=== PATIENT | male | born 1960 | race Caucasian/White ===

== ENCOUNTER 2020-12-05 19:00 | Observation (INO) | payer BC ==
[2020-12-05] MEDS ORDERED: Sodium Chloride 0.9% 1,000 ML IV ONE (19:08)
[2020-12-05] MEDS ORDERED: Morphine 2 MG/ML SYRINGE IVPUSH ONE (19:08)
[2020-12-05] MEDS ORDERED: Tranexamic Acid 1,000 MG in Sodium Chloride 0.9% 100 ML IV SCH (19:15)
[2020-12-05] MEDS ORDERED: Iopamidol 612 MG/ML 50 ML SDV IVPUSH ONE (19:31)
[2020-12-05] MEDS ORDERED: Iopamidol 612 MG/ML 100 ML Bottle IVPUSH ONE (19:31)
[2020-12-05] MEDS: Sodium Chloride 0.9% 10 ML Syringe FLUSH PRN ×2 (19:37→19:41)
--- NOTE | 2020-12-05 19:54 | CT ---
CT chest Technique: Multiple axial sections were obtained through the chest. Intravenous contrast was utilized. Reconstructed coronal and sagittal images were obtained. Comparison: No prior chest imaging is available. Findings: Thoracic aorta shows no aneurysm. Mediastinum and hilar regions show no adenopathy. No axillary adenopathy is seen. No pericardial thickening is seen. Lung window settings were reviewed which show slight dependent atelectasis posteriorly. Lungs show no acute parenchymal process. No pleural effusions or pneumothorax are seen. Bone window settings were reviewed which show acute rib fractures within the posterolateral right 9th rib which is mildly displaced. Additional fracture is seen showing minimal displacement within the posterolateral 10th rib and nondisplaced fracture within the posterior 11th rib. There is also a slightly angulated fracture within the posterior 12th rib. Deformity is noted within both clavicles compatible with old healed fractures. Several old rib fractures are also noted on the right side. Impression: 1. Acute rib fractures within the right 9th, 10th, 11th and 12th ribs. 2. Several old rib fractures which appear healed are also noted on the right side. Old deformity of both clavicles are seen compatible with old injury. 3. Minimal dependent atelectasis. 4. No other acute abnormality is appreciated on CT study of the chest. Diagnostic code #3 CT abdomen and pelvis Technique: Multiple axial sections were obtained from above the dome of the diaphragm inferiorly through the pubic symphysis. Intravenous contrast was utilized. No oral contrast has been given. Delayed images were also obtained through the abdomen and pelvis. Reconstructed coronal and sagittal images were obtained. Comparison: No prior abdominal imaging is available. Findings: Subcutaneous hematoma is seen within the right flank. There is also mild thickening of the adjacent right abdominal musculature within the posterolateral abdomen above the iliac crest compatible with muscular hematoma. Liver shows fatty infiltration without focal abnormality. Gallbladder contains no calcified gallstones. Spleen appears within normal limits. Adrenal glands show no nodule. Pancreas is within normal limits. Kidneys show symmetric contrast enhancement. No hydronephrosis or other abnormality is seen. Delayed images show contrast within the collecting systems of both kidneys as well as within the ureters and bladder. Abdominal aorta shows no aneurysm. No retroperitoneal adenopathy is seen. No mesenteric abnormalities are seen. No pelvic mass or adenopathy is seen. Appendix is seen which is normal in size. Bone window settings were reviewed which show a compression deformity within L4. I believe this is most likely old. Scattered degenerative change is seen within the lumbar spine. Nothing acute is appreciated within the visualized osseous structures within the abdomen and pelvis. Impression: 1. Subcutaneous hematoma within the right flank as well as adjacent muscular hematoma within the adjacent abdominal musculature. 2. Compression deformity within L4 which is most likely old. 3. Other findings which are believed to be incidental. Diagnostic code #3
--- NOTE | 2020-12-05 20:34 | EDM.PDOC ---
ED HPI GENERAL MEDICAL PROBLEM - General Chief Complaint: Trauma Stated Complaint: [facility] Time Seen by Provider: 12/05/20 19:06 Source of Information: Reports: Patient, EMS History Limitations: Reports: No Limitations - History of Present Illness INITIAL COMMENTS - FREE TEXT/NARRATIVE: Patient is a 60-year-old male who had a trauma between himself and a horse in an alley wall. Horse was running by and knocked the patient into the wall with right-sided torso injury and left wrist pain. Patient was not kicked or stepped on by the horse. He was not thrown by the horse. He denies any trouble breathing and is having right flank pain and right rib pain. He denies drinking any alcohol or using any drugs. He states he has no medical problems and is not on any medications and he is allergic to aspirin which causes his throat to swell. Patient has a slight lisp which is not new. There was no head or neck trauma. Onset: Today, Sudden Duration: Constant Location: Reports: Chest, Abdomen, Upper Extremity, Left Quality: Reports: Ache, Dull Severity: Moderate Worsens with: Reports: Movement Context: Reports: Trauma Associated Symptoms: Reports: No Other Symptoms. Denies: Headaches, Nausea/Vomiting, Shortness of Breath Left Shoulder Pain Score (Numeric/FACES): 5 - Related Data Allergies Allergy/AdvReac Type Severity Reaction Status Date / Time aspirin Allergy Respiratory Verified 12/05/20 19:14 Distress Home Meds: Home Meds . [No Known Home Meds] 12/05/20 [History] Past Medical History - Past Health History Medical/Surgical History: Denies Medical/Surgical History Social & Family History - Tobacco Use Tobacco Use Status *Q: Never Tobacco User Second Hand Smoke Exposure: No - Caffeine Use Caffeine Use: Reports: Soda - Alcohol Use Date of Last Drink: 12/05/20 Time of Last Drink: 17:00 - Recreational Drug Use Recreational Drug Use: No Review of Systems - Review of Systems Review Of Systems: Comprehensive ROS is negative, except as noted in HPI. Constitutional: Reports: No Symptoms Mouth/Throat: Reports: No Symptoms Respiratory: Reports: Pleuritic Chest Pain. Denies: Shortness of Breath Cardiovascular: Reports: No Symptoms GI/Abdominal: Reports: Abdominal Pain. Denies: Nausea, Vomiting Musculoskeletal: Reports: Arm Pain Skin: Reports: Bruising, Erythema (Right-sided abrasions contusions on his flank and lateral chest wall.) Neurological: Reports: No Symptoms. Denies: Dizziness, Headache, Numbness Psychiatric: Reports: No Symptoms ED EXAM, GENERAL - Physical Exam Exam: See Below Exam Limited By: No Limitations General Appearance: Alert, Mild Distress Throat/Mouth: Normal Inspection Head: Atraumatic, Normocephalic Neck: Normal Inspection, Supple, Non-Tender, Full Range of Motion Respiratory/Chest: No Respiratory Distress, Lungs Clear, Normal Breath Sounds. No: Decreased Breath Sounds, Crackles, Rales, Retractions Cardiovascular: Regular Rate, Rhythm, No Edema, No JVD GI/Abdominal: Tender. No: Distended, Guarding, Rigid, Rebound, Abnormal Bowel Sounds Back Exam: No: CVA Tenderness (L), CVA Tenderness (R) Extremities: Arm Pain (Left wrist pain.) Neurological: Alert, Oriented, Normal Cognition Psychiatric: Normal Affect Skin Exam: Warm, Dry Lymphatic: No Adenopathy Course - Vital Signs Text/Narrative:: CT of his chest and abdomen shown to have rib fractures on the right side number 11/28/2010 and 12. He does have injury to his right flank with a hematoma in the abdominal low musculature patient does have a compression deformity of L4 which appears to be old. There is no other injuries reported by radiologist. Is left wrist shows him to have a distal ulnar fracture. Patient is comfortable with 2 mg of morphine at this point. I have discussed his findings and vital signs with Dr. Zhang who is a surgeon environmental marketing representative who has agreed to admit him for pain control and observation. Patient's vital signs remained stable throughout and he has never been tachycardic and blood pressure of 129/89. He has received a liter of fluid and his lab work is unremarkable. Last Recorded V/S: Last Vital Signs Temp 98.2 F 12/05/20 22:00 Pulse 77 12/05/20 22:03 Resp 20 12/05/20 22:00 BP 135/87 12/05/20 22:00 Pulse Ox 96 12/05/20 22:03 - Orders/Labs/Meds Orders: Active Orders 24 hr Category Date Time Status Sodium Chloride 0.9% [Saline Flush] Med 12/05/20 19:08 Active 10 ml FLUSH ASDIRECTED PRN Peripheral IV Insertion Adult [OM.PC] Routine Oth 12/05/20 19:07 Ordered Medication Orders Hydromorphone HCl (Hydromorphone 0.5 Mg/0.5 Ml Syringe) 0.5 mg IVPUSH Q1H PRN PRN Reason: Pain Sodium Chloride (Normal Saline) 1,000 mls @ 125 mls/hr IV ASDIRECTED MORIAH Last Admin: 12/06/20 00:03 Dose: 125 mls/hr Documented by: JES Oxycodone HCl (Oxycodone 5 Mg Tab) 5 mg PO Q4H PRN PRN Reason: Pain Oxycodone/Acetaminophen (Acetaminophen/Oxycodone 325-5 Mg Tab) 1 tab PO Q4H PRN PRN Reason: Pain (moderate 4-6) Last Admin: 12/06/20 00:03 Dose: 1 tab Documented by: JES Sodium Chloride (Sodium Chloride 0.9% 10 Ml Syringe) 10 ml FLUSH ASDIRECTED PRN PRN Reason: Keep Vein Open Last Admin: 12/05/20 19:41 Dose: 10 ml Documented by: Admin: 12/05/20 19:37 Dose: 10 ml Documented by: CARMITA Labs: Laboratory Tests 12/05/20 12/05/20 12/05/20 Range/Units 19:04 19:04 19:04 WBC 9.62 H (4.23-9.07) K/mm3 RBC 4.65 (4.63-6.08) M/mm3 Hgb 13.6 L (13.7-17.5) gm/dl Hct 41.9 (40.1-51.0) % MCV 90.1 (79.0-92.2) fl MCH 29.2 (25.7-32.2) pg MCHC 32.5 (32.2-35.5) g/dl RDW Std Deviation 43.5 (35.1-43.9) fL Plt Count 263 (163-337) K/mm3 MPV 9.5 (9.4-12.3) fl Neutrophils % (Manual) 73 H (40-60) % Band Neutrophils % 0 (0-10) % Lymphocytes % (Manual) 19 L (20-40) % Atypical Lymphs % 0 % Monocytes % (Manual) 6 (2-10) % Eosinophils % (Manual) 2 (0.8-7.0) % Basophils % (Manual) 0 L (0.2-1.2) Platelet Estimate Adequate RBC Morph Comment Normal Sodium 141 (136-145) mEq/L Potassium 4.1 (3.5-5.1) mEq/L Chloride 107 (98-107) mEq/L Carbon Dioxide 29 (21-32) mEq/L Anion Gap 9.1 (5-15) BUN 18 (7-18) mg/dL Creatinine 1.2 (0.7-1.3) mg/dL Est Cr Clr Drug Dosing 71.85 mL/min Estimated GFR (MDRD) > 60 (>60) mL/min BUN/Creatinine Ratio 15.0 (14-18) Glucose 135 H (70-99) mg/dL Calcium 8.5 (8.5-10.1) mg/dL Total Bilirubin 0.6 (0.2-1.0) mg/dL AST 35 (15-37) U/L ALT 45 (16-63) U/L Alkaline Phosphatase 86 (46-116) U/L Total Protein 7.4 (6.4-8.2) g/dl Albumin 3.8 (3.4-5.0) g/dl Globulin 3.6 gm/dL Albumin/Globulin Ratio 1.1 (1-2) Lipase 85 (73-393) U/L SARS-CoV-2 RNA (FREDI) (NEGATIVE) Blood Type A POSITIVE Gel Antibody Screen Negative 12/05/20 Range/Units 19:49 WBC (4.23-9.07) K/mm3 RBC (4.63-6.08) M/mm3 Hgb (13.7-17.5) gm/dl Hct (40.1-51.0) % MCV (79.0-92.2) fl MCH (25.7-32.2) pg MCHC (32.2-35.5) g/dl RDW Std Deviation (35.1-43.9) fL Plt Count (163-337) K/mm3 MPV (9.4-12.3) fl Neutrophils % (Manual) (40-60) % Band Neutrophils % (0-10) % Lymphocytes % (Manual) (20-40) % Atypical Lymphs % % Monocytes % (Manual) (2-10) % Eosinophils % (Manual) (0.8-7.0) % Basophils % (Manual) (0.2-1.2) Platelet Estimate RBC Morph Comment Sodium (136-145) mEq/L Potassium (3.5-5.1) mEq/L Chloride (98-107) mEq/L Carbon Dioxide (21-32) mEq/L Anion Gap (5-15) BUN (7-18) mg/dL Creatinine (0.7-1.3) mg/dL Est Cr Clr Drug Dosing mL/min Estimated GFR (MDRD) (>60) mL/min BUN/Creatinine Ratio (14-18) Glucose (70-99) mg/dL Calcium (8.5-10.1) mg/dL Total Bilirubin (0.2-1.0) mg/dL AST (15-37) U/L ALT (16-63) U/L Alkaline Phosphatase (46-116) U/L Total Protein (6.4-8.2) g/dl Albumin (3.4-5.0) g/dl Globulin gm/dL Albumin/Globulin Ratio (1-2) Lipase (73-393) U/L SARS-CoV-2 RNA (FREDI) Negative (NEGATIVE) Blood Type Gel Antibody Screen Meds: Medications Generic Name Dose Route Start Last Admin Trade Name Freq PRN Reason Stop Dose Admin Hydromorphone HCl 0.5 mg 12/05/20 23:42 Hydromorphone 0.5 Mg/0.5 Ml Syringe IVPUSH Q1H PRN Pain Sodium Chloride 1,000 mls @ 125 mls/hr 12/05/20 23:45 12/06/20 00:03 Normal Saline IV 125 mls/hr ASDIRECTED MORIAH Administration Oxycodone HCl 5 mg 12/05/20 23:41 Oxycodone 5 Mg Tab PO Q4H PRN Pain Oxycodone/Acetaminophen 1 tab 12/05/20 23:35 12/06/20 00:03 Acetaminophen/Oxycodone 325-5 Mg Tab PO 1 tab Q4H PRN Administration Pain (moderate 4-6) Sodium Chloride 10 ml 12/05/20 19:08 12/05/20 19:41 Sodium Chloride 0.9% 10 Ml Syringe FLUSH 10 ml ASDIRECTED PRN Administration Keep Vein Open Discontinued Medications Generic Name Dose Route Start Last Admin Trade Name Freq PRN Reason Stop Dose Admin Sodium Chloride 1,000 mls @ 1,000 mls/hr 12/05/20 19:08 12/05/20 19:41 Normal Saline IV 12/05/20 20:07 1,000 mls/hr ONETIME ONE Administration Tranexamic Acid 1,000 mg/ 110 mls @ 400 mls/hr 12/05/20 19:15 Sodium Chloride IV ONETIME MORIAH Iopamidol 50 ml 12/05/20 19:31 12/05/20 19:37 Iopamidol 612 Mg/Ml 50 Ml Sdv IVPUSH 12/05/20 19:32 50 ml ONETIME ONE Administration Iopamidol 100 ml 12/05/20 19:31 12/05/20 19:37 Iopamidol 612 Mg/Ml 100 Ml Bottle IVPUSH 12/05/20 19:32 100 ml ONETIME ONE Administration Morphine Sulfate 2 mg 12/05/20 19:08 12/05/20 19:41 Morphine 2 Mg/Ml Syringe IVPUSH 12/05/20 19:09 2 mg ONETIME ONE Administration Departure - Departure Time of Disposition: 20:37 Disposition: Admitted As Inpatient 66 Condition: Good Clinical Impression: Fracture of multiple ribs, Abdominal wall hematoma, Wrist fracture, left - Discharge Information Sepsis Event Note (ED) - Focused Exam Vital Signs: Vital Signs Temp Pulse Resp BP Pulse Ox 12/05/20 19:12 97.3 F 75 20 129/89 92 L - My Orders Last 24 Hours: My Active Orders 12/05/20 19:07 Peripheral IV Insertion Adult [OM.PC] Routine 12/05/20 19:08 Sodium Chloride 0.9% [Saline Flush] 10 ml FLUSH ASDIRECTED PRN - Assessment/Plan Last 24 Hours: My Active Orders 12/05/20 19:07 Peripheral IV Insertion Adult [OM.PC] Routine 12/05/20 19:08 Sodium Chloride 0.9% [Saline Flush] 10 ml FLUSH ASDIRECTED PRN
[2020-12-05] MEDS ORDERED: oxyCODONE 5 MG Tab PO PRN (23:41)
[2020-12-05] MEDS ORDERED: HYDROmorphone 0.5 MG/0.5 ML Syringe IVPUSH PRN (23:42)
[2020-12-06] MEDS: Acetaminophen/oxyCODONE 325-5 MG Tab PO PRN ×3 (00:03→16:43)
[2020-12-06] MEDS: Sodium Chloride 0.9% 1,000 ML IV SCH ×2 (00:03→07:47)
--- NOTE | 2020-12-06 07:40 | CR ---
Left wrist: 3 views of the left wrist were obtained. Comparison: No prior wrist study is available. Vertical fracture is seen within the distal metaphysis and epiphysis of the radius extending into the articular margin. Old fracture is noted off the distal ulnar styloid process. Acute fracture is seen at the base of the ulnar styloid process. Diffuse soft tissue swelling is identified. Small bony density is seen off the distal radial tip which could represent old or acute small avulsion fracture. No other acute abnormality is appreciated within the left wrist. Impression: 1. Vertical fracture extending into the articular margin within the distal left radius. 2. Old fracture within the radial styloid process as well as an acute fracture involving the base of the ulnar styloid process. 3. Small abnormality within the tip of the radial styloid process either due to old injury or acute small avulsion injury. 4. Diffuse soft tissue swelling. Diagnostic code #3
--- NOTE | 2020-12-06 07:41 | CR ---
Left forearm: 2 views of the left forearm were obtained. Comparison: Prior left wrist study performed earlier on the same date (7:39 PM). Distal radial and ulnar fractures are partially visualized on this study. Density is noted within the between the radius and ulna located more proximally which is noted on the frontal view but not seen on the lateral view presumably representing artifact. No additional abnormality is identified within the left forearm. Soft tissue swelling is noted distally. Impression: 1. Distal soft tissue swelling. 2. Wrist fractures as noted on wrist exam. 3. Other findings as noted above believed to be incidental. Diagnostic code #3
--- NOTE | 2020-12-06 11:35 | PCM.HP.2 ---
H&P History of Present Illness - General Date of Service: 12/06/20 Admit Problem/Dx: Admission Diagnosis/Problem Admission Diagnosis/Problem Trauma of chest Source of Information: Patient History Limitations: Reports: No Limitations - History of Present Illness Initial Comments - Free Text/Narative: The patient was knocked by a horse on the right trunk yesterday 12/05. He was pushed to an alley wall. No fall. Had right sided abdominal and chest wall pain. Presented to the ER where CT chest/A/P was done. He has right 9th-12th rib fractures and right flank abd wall contusion. No intraabdominal injuries. No other chest injuries. He also sustained a left wrist fracture, small. this was splinted. He was admitted for observation. Onset of Symptoms: Reports: Sudden Duration of Symptoms: Reports: Day(s): (1), Improving Location: Reports: Chest, Abdomen Quality: Reports: Sharp Severity: Severe Improves with: Reports: Immobilization Worsens with: Reports: Breathing, Movement Context: Reports: Trauma Left Shoulder Pain Score (Numeric/FACES): 6 - Related Data Allergies/Adverse Reactions: Allergies Allergy/AdvReac Type Severity Reaction Status Date / Time aspirin Allergy Respiratory Verified 12/06/20 07:04 Distress Home Medications: Home Meds . [No Known Home Meds] 12/05/20 [History] Past Medical History - Past Health History Medical/Surgical History: Denies Medical/Surgical History HEENT History: Reports: None Musculoskeletal History: Reports: Back Pain, Chronic - Infectious Disease History Infectious Disease History: Reports: Chicken Pox, Influenza, Measles, Mumps - Past Surgical History HEENT Surgical History: Reports: None Other HEENT Surgeries/Procedures: pt has no natural teeth and has dentures. only has the lower denture here with him. Musculoskeletal Surgical History: Reports: None Social & Family History - Tobacco Use Tobacco Use Status *Q: Former Tobacco User Used Tobacco, but Quit: No Second Hand Smoke Exposure: No - Caffeine Use Caffeine Use: Reports: Other Other Caffeine Use: drinks pop daily - Alcohol Use Date of Last Drink: 12/05/20 Time of Last Drink: 17:00 - Recreational Drug Use Recreational Drug Use: No H&P Review of Systems - Review of Systems: Review Of Systems: See Below General: Reports: No Symptoms HEENT: Reports: No Symptoms Pulmonary: Reports: Pleuritic Chest Pain (right) Cardiovascular: Reports: No Symptoms Gastrointestinal: Reports: No Symptoms Genitourinary: Reports: No Symptoms Musculoskeletal: Reports: No Symptoms Skin: Reports: Bruising (right flank) Exam - Exam Exam: See Below - Vital Signs Vital Signs: Last Vital Signs Temp 98.9 F 12/06/20 08:59 Pulse 69 12/06/20 08:35 Resp 18 12/06/20 08:35 BP 116/62 12/06/20 08:35 Pulse Ox 99 12/06/20 08:35 Weight: 110.54 kg - Exam General: Alert, Oriented, Cooperative HEENT: Conjunctiva Clear, EACs Clear, EOMI, Hearing Intact Neck: Supple, Trachea Midline, Full Range of Motion Lungs: Clear to Auscultation, Crackles (slight on the bases) Cardiovascular: Regular Rate, Regular Rhythm, Normal S1, Normal S2 GI/Abdominal Exam: Soft, Non-Tender, No Organomegaly, No Distention Back Exam: Normal Inspection, Full Range of Motion Extremities: Normal Inspection (except for the left wrist), No Pedal Edema, Slow Capillary Refill - Patient Data Lab Results Last 24 hrs: Laboratory Results - last 24 hr 12/05/20 12/05/20 12/05/20 Range/Units 19:04 19:04 19:04 WBC 9.62 H (4.23-9.07) K/mm3 RBC 4.65 (4.63-6.08) M/mm3 Hgb 13.6 L (13.7-17.5) gm/dl Hct 41.9 (40.1-51.0) % MCV 90.1 (79.0-92.2) fl MCH 29.2 (25.7-32.2) pg MCHC 32.5 (32.2-35.5) g/dl RDW Std Deviation 43.5 (35.1-43.9) fL Plt Count 263 (163-337) K/mm3 MPV 9.5 (9.4-12.3) fl Neutrophils % (Manual) 73 H (40-60) % Band Neutrophils % 0 (0-10) % Lymphocytes % (Manual) 19 L (20-40) % Atypical Lymphs % 0 % Monocytes % (Manual) 6 (2-10) % Eosinophils % (Manual) 2 (0.8-7.0) % Basophils % (Manual) 0 L (0.2-1.2) Platelet Estimate Adequate RBC Morph Comment Normal Sodium 141 (136-145) mEq/L Potassium 4.1 (3.5-5.1) mEq/L Chloride 107 (98-107) mEq/L Carbon Dioxide 29 (21-32) mEq/L Anion Gap 9.1 (5-15) BUN 18 (7-18) mg/dL Creatinine 1.2 (0.7-1.3) mg/dL Est Cr Clr Drug Dosing 71.85 mL/min Estimated GFR (MDRD) > 60 (>60) mL/min BUN/Creatinine Ratio 15.0 (14-18) Glucose 135 H (70-99) mg/dL Calcium 8.5 (8.5-10.1) mg/dL Total Bilirubin 0.6 (0.2-1.0) mg/dL AST 35 (15-37) U/L ALT 45 (16-63) U/L Alkaline Phosphatase 86 (46-116) U/L Total Protein 7.4 (6.4-8.2) g/dl Albumin 3.8 (3.4-5.0) g/dl Globulin 3.6 gm/dL Albumin/Globulin Ratio 1.1 (1-2) Lipase 85 (73-393) U/L Urine Opiates Screen (EMQPCE=323) Ur Buprenorphine Scrn (CUTOFF=10) Ur Oxycodone Screen (VCZ4DN=906) Urine Methadone Screen (RAO6XL=640) Ur Propoxyphene Screen (EBZHFY=761) Ur Barbiturates Screen (ZPVGWM=906) Ur Tricyclics Screen (JNRWQR=815) Ur Phencyclidine Scrn (CUTOFF=25) Ur Amphetamine Screen (JHGKZV=602) U Methamphetamines Scrn (BCSHQL=714) U Benzodiazepines Scrn (MFVXFD=596) U Cocaine Metab Screen (FOBAOY=656) U Marijuana (THC) Screen (CUTOFF=50) SARS-CoV-2 RNA (FREDI) (NEGATIVE) Blood Type A POSITIVE Gel Antibody Screen Negative 12/05/20 12/05/20 Range/Units 19:49 23:15 WBC (4.23-9.07) K/mm3 RBC (4.63-6.08) M/mm3 Hgb (13.7-17.5) gm/dl Hct (40.1-51.0) % MCV (79.0-92.2) fl MCH (25.7-32.2) pg MCHC (32.2-35.5) g/dl RDW Std Deviation (35.1-43.9) fL Plt Count (163-337) K/mm3 MPV (9.4-12.3) fl Neutrophils % (Manual) (40-60) % Band Neutrophils % (0-10) % Lymphocytes % (Manual) (20-40) % Atypical Lymphs % % Monocytes % (Manual) (2-10) % Eosinophils % (Manual) (0.8-7.0) % Basophils % (Manual) (0.2-1.2) Platelet Estimate RBC Morph Comment Sodium (136-145) mEq/L Potassium (3.5-5.1) mEq/L Chloride (98-107) mEq/L Carbon Dioxide (21-32) mEq/L Anion Gap (5-15) BUN (7-18) mg/dL Creatinine (0.7-1.3) mg/dL Est Cr Clr Drug Dosing mL/min Estimated GFR (MDRD) (>60) mL/min BUN/Creatinine Ratio (14-18) Glucose (70-99) mg/dL Calcium (8.5-10.1) mg/dL Total Bilirubin (0.2-1.0) mg/dL AST (15-37) U/L ALT (16-63) U/L Alkaline Phosphatase (46-116) U/L Total Protein (6.4-8.2) g/dl Albumin (3.4-5.0) g/dl Globulin gm/dL Albumin/Globulin Ratio (1-2) Lipase (73-393) U/L Urine Opiates Screen Negative (GSTCGT=981) Ur Buprenorphine Scrn Negative (CUTOFF=10) Ur Oxycodone Screen Negative (LJL6PD=362) Urine Methadone Screen Negative (VSR5JM=274) Ur Propoxyphene Screen Negative (GJDGWU=068) Ur Barbiturates Screen Negative (HPCXSY=894) Ur Tricyclics Screen Negative (RVEXYO=537) Ur Phencyclidine Scrn Negative (CUTOFF=25) Ur Amphetamine Screen Presumptive positive H (FBGUYT=673) U Methamphetamines Scrn Presumptive positive H (NLNCYM=529) U Benzodiazepines Scrn Presumptive positive H (SPATKR=535) U Cocaine Metab Screen Negative (KNIILZ=853) U Marijuana (THC) Screen Negative (CUTOFF=50) SARS-CoV-2 RNA (FREDI) Negative (NEGATIVE) Blood Type Gel Antibody Screen Result Diagrams: 12/05/20 19:04 12/05/20 19:04 Jose Results Last 24 hrs: Microbiology 12/05/20 19:55 Influenza Type A Antigen Screen - Final Nasopharyngeal Swab - Nare, Unspecified NEGATIVE INFLUENZA A VIRUS AG REFERENCE RANGE: NEGATIVE Influenza Type B Antigen Screen - Final NEGATIVE INFLUENZA B VIRUS AG REFERENCE RANGE: NEGATIVE Sepsis Event Note - Evaluation Sepsis Screening Result: No Definite Risk - Focused Exam Vital Signs: Vital Signs Temp Temp Pulse Resp BP Pulse Ox 12/06/20 08:59 98.9 F 12/06/20 08:35 69 18 116/62 99 12/06/20 02:47 98.2 F 94 20 135/82 98 12/06/20 00:11 97.2 F 93 20 121/61 79 L Problem List Initiated/Reviewed/Updated: No Orders Last 24hrs: Active Orders 24 hr Category Date Time Status Admission Status [Patient Status] [ADT] Routine ADT 12/05/20 20:20 Active Bedrest Bedside Commode [RC] ASDIRECTED Care 12/05/20 23:43 Active Incentive Spirometry [RT Incentive Spirometry] [RC] Care 12/06/20 09:32 Active Q1HWA Regular Diet [DIET] Diet 12/06/20 Breakfast Active Acetaminophen/oxyCODONE [Percocet 325-5 MG] Med 12/05/20 23:35 Active 1 tab PO Q4H PRN HYDROmorphone [Dilaudid] Med 12/05/20 23:42 Active 0.5 mg IVPUSH Q1H PRN Sodium Chloride 0.9% [Saline Flush] Med 12/05/20 19:08 Active 10 ml FLUSH ASDIRECTED PRN oxyCODONE Med 12/05/20 23:41 Active 5 mg PO Q4H PRN Peripheral IV Insertion Adult [OM.PC] Routine Oth 12/05/20 19:07 Ordered RT Acapella [RESPCARE] Routine Oth 12/06/20 09:32 Active Code Status [Resuscitation Status] Routine Resus Stat 12/05/20 23:44 Ordered Medication Orders Hydromorphone HCl (Hydromorphone 0.5 Mg/0.5 Ml Syringe) 0.5 mg IVPUSH Q1H PRN PRN Reason: Pain Oxycodone HCl (Oxycodone 5 Mg Tab) 5 mg PO Q4H PRN PRN Reason: Pain Oxycodone/Acetaminophen (Acetaminophen/Oxycodone 325-5 Mg Tab) 1 tab PO Q4H PRN PRN Reason: Pain (moderate 4-6) Last Admin: 12/06/20 07:48 Dose: 1 tab Documented by: Admin: 12/06/20 00:03 Dose: 1 tab Documented by: JES Sodium Chloride (Sodium Chloride 0.9% 10 Ml Syringe) 10 ml FLUSH ASDIRECTED PRN PRN Reason: Keep Vein Open Last Admin: 12/05/20 19:41 Dose: 10 ml Documented by: Admin: 12/05/20 19:37 Dose: 10 ml Documented by: CARMITA Assessment/Plan Comment:: HD1 s/p blunt trauma to the right trunk 2/2 hose hit. Plan - pain control and pulm hygiene for rib fractures - no need for intervention for the right flank contusion - left wrist fractutre splinted. Outpatient ortho follow up - Encourage sitting and ambulation - ok to have regular diet - no IVF - Labs PRN - dispo: likely tomorrow - Mortality Measure Prognosis:: Good (no life threatening injuries)
[2020-12-06] MEDS: Acetaminophen 325 MG Tab PO SCH ×3 (12:26→23:12)
[2020-12-06] MEDS: Polyethylene Glycol 3350 Powder 17 GM Packet PO SCH (12:29)
[2020-12-07] MEDS: Acetaminophen/oxyCODONE 325-5 MG Tab PO PRN ×2 (01:33→07:10)
[2020-12-07] MEDS: Acetaminophen 325 MG Tab PO SCH ×2 (07:10→12:18)
[2020-12-07] MEDS: Polyethylene Glycol 3350 Powder 17 GM Packet PO SCH (08:27)
[2020-12-07] MEDS ORDERED: Enoxaparin 40 MG/0.4 ML Syringe SUBCUT SCH (09:00)
--- NOTE | 2020-12-07 10:59 | PCM.PN ---
- General Info Date of Service: 12/07/20 Admission Dx/Problem (Free Text): Admission Diagnosis/Problem Admission Diagnosis/Problem Trauma of chest Subjective Update: Patient's pain is stable. has some left hand swelling due to the splint. has left clavicular pain but CT does not show any fracture. able to ambulate and tolerating diet Functional Status: Reports: Pain Controlled, Tolerating Diet, Ambulating, Urinating - Review of Systems General: Reports: No Symptoms HEENT: Reports: No Symptoms Pulmonary: Reports: No Symptoms Cardiovascular: Reports: No Symptoms Gastrointestinal: Reports: No Symptoms Genitourinary: Reports: No Symptoms - Patient Data Vitals - Most Recent: Last Vital Signs Temp 98.2 F 12/07/20 08:39 Pulse 78 12/07/20 08:39 Resp 16 12/07/20 08:39 BP 143/88 H 12/07/20 08:39 Pulse Ox 93 L 12/07/20 08:39 Weight - Most Recent: 114.26 kg I&O - Last 24 Hours: Intake & Output 12/06/20 12/07/20 12/07/20 22:59 06:59 14:59 Intake Total 2640 1700 480 Output Total 800 1250 Balance 1840 450 480 Med Orders - Current: Current Medications Acetaminophen (Acetaminophen 325 Mg Tab) 650 mg PO Q6H [facility] Last Admin: 12/07/20 07:10 Dose: 650 mg Documented by: Enoxaparin Sodium (Enoxaparin 40 Mg/0.4 Ml Syringe) 40 mg SUBCUT DAILY [facility] Last Admin: 12/07/20 08:25 Dose: 40 mg Documented by: Hydromorphone HCl (Hydromorphone 0.5 Mg/0.5 Ml Syringe) 0.5 mg IVPUSH Q1H PRN PRN Reason: Pain Oxycodone HCl (Oxycodone 5 Mg Tab) 5 mg PO Q4H PRN PRN Reason: Pain Oxycodone/Acetaminophen (Acetaminophen/Oxycodone 325-5 Mg Tab) 1 tab PO Q4H PRN PRN Reason: Pain (moderate 4-6) Last Admin: 12/07/20 07:10 Dose: 1 tab Documented by: Polyethylene Glycol (Polyethylene Glycol 3350 Powder 17 Gm Packet) 17 gm PO DAILY [facility] Last Admin: 12/07/20 08:27 Dose: 17 gm Documented by: Sodium Chloride (Sodium Chloride 0.9% 10 Ml Syringe) 10 ml FLUSH ASDIRECTED PRN PRN Reason: Keep Vein Open Last Admin: 12/05/20 19:41 Dose: 10 ml Documented by: Discontinued Medications Sodium Chloride (Normal Saline) 1,000 mls @ 1,000 mls/hr IV ONETIME ONE Stop: 12/05/20 20:07 Last Admin: 12/05/20 19:41 Dose: 1,000 mls/hr Documented by: Tranexamic Acid 1,000 mg/ (Sodium Chloride) 110 mls @ 400 mls/hr IV ONETIME MORIAH Sodium Chloride (Normal Saline) 1,000 mls @ 125 mls/hr IV ASDIRECTED MORIAH Last Admin: 12/06/20 07:47 Dose: 125 mls/hr Documented by: Iopamidol (Iopamidol 612 Mg/Ml 50 Ml Sdv) 50 ml IVPUSH ONETIME ONE Stop: 12/05/20 19:32 Last Admin: 12/05/20 19:37 Dose: 50 ml Documented by: Iopamidol (Iopamidol 612 Mg/Ml 100 Ml Bottle) 100 ml IVPUSH ONETIME ONE Stop: 12/05/20 19:32 Last Admin: 12/05/20 19:37 Dose: 100 ml Documented by: Morphine Sulfate (Morphine 2 Mg/Ml Syringe) 2 mg IVPUSH ONETIME ONE Stop: 12/05/20 19:09 Last Admin: 12/05/20 19:41 Dose: 2 mg Documented by: - Exam Quality Assessment: DVT Prophylaxis General: Alert, Oriented, Cooperative Lungs: Normal Respiratory Effort, Other (right chest wall tenderness to palpation posteriorly) Cardiovascular: Regular Rate, Regular Rhythm GI/Abdominal Exam: Soft, No Distention, Other (right flank bruising and tenderness is present) - Patient Data Result Diagrams: 12/05/20 19:04 12/05/20 19:04 Sepsis Event Note - Evaluation Sepsis Screening Result: No Definite Risk - Focused Exam Vital Signs: Vital Signs Temp Pulse Resp BP Pulse Ox 12/07/20 08:39 98.2 F 78 16 143/88 H 93 L 12/06/20 23:16 98.1 F 88 20 130/85 94 L - Problem List Review Problem List Initiated/Reviewed/Updated: No - My Orders Last 24 Hours: My Active Orders 12/06/20 11:41 Ambulate [RC] Q4HR Up ad Candida [RC] ASDIRECTED Up to Chair [RC] ASDIRECTED 12/06/20 11:44 Oxygen Therapy [RC] PRN VTE/DVT Education [RC] PER UNIT ROUTINE Vital Signs [RC] Q4HR Sequential Compression Device [OM.PC] Per Unit Routine 12/06/20 11:45 Antiembolic Devices [RC] PER UNIT ROUTINE Acetaminophen [TylenoL] 650 mg PO Q6H 12/06/20 12:00 polyethylene glycoL 3350 [MiraLAX] 17 gm PO DAILY 12/07/20 09:00 Enoxaparin [Lovenox] 40 mg SUBCUT DAILY - Assessment Assessment:: HD2 s/p Trauma to the right trunk. Has right flank hematoma, right 9th - 12th rib fractures, left distal radius fx. - Plan Plan:: HD2 s/p blunt trauma to the right trunk 2/2 hose hit. - continue splint on the left wrist. Will follow up with Orthopedics locally. - left clavicular pain - no definite fracture. Patient declines a chest xray - right rib fractures - pain control, pulm toilet. these will heal with time - right flank contusion - will heal with time - dispo: home today
--- NOTE | 2020-12-07 11:19 | PCM.DCSUM1 ---
Discharge Summary - Hospital Course Free Text/Narrative:: Patient was hit by a horse on 12/05/2020. He sustained right sided rib fractures and right flank abdominal wall contusion. No intraabdominal injuries. No intrathoracic injuries. He also has a small left radial fracture. He was observed for pain control and did well. He will be discharged to home today. He lives in [place]. He will follow up with Orthopedic surgeon locally for wrist fracture management. He is to continue with a splint until then. Diagnosis: Stroke: No - Discharge Data Discharge Date: 12/07/20 Discharge Disposition: Home, Self-Care 01 Condition: Good - Referral to Home Health Primary Care Physician: PCP Not In Area - Patient Instructions Diet: Heart Healthy Diet Activity: As Tolerated Driving: Do Not Drive (When taken opioid pain medication within 24 hours) Showering/Bathing: May Shower Other/Special Instructions: - Keep left arm elevated to reduce swelling. - Take Tylenol or Ibuprofen regularly, if the pain is worse, take the prescribed opioid pain medications. - When taking opioid pain medications, take Miralax to avoid constipation. - See an orthopedic surgeon close to home for recommendations about the management of the left wrist fracture - Discharge Plan *PRESCRIPTION DRUG MONITORING PROGRAM REVIEWED*: No *COPY OF PRESCRIPTION DRUG MONITORING REPORT IN PATIENT LEWIS: No Prescriptions/Med Rec: polyethylene glycoL 3350 [MiraLAX] 17 gm PO DAILY 14 Days #14 packet oxyCODONE 5 mg PO Q6H PRN 10 Days #40 tablet PRN Reason: Pain Home Medications: Home Meds Acetaminophen [Tylenol] 650 mg PO Q6H tablet 12/07/20 [Rx] oxyCODONE 5 mg PO Q6H PRN 10 Days #40 tablet 12/07/20 [Rx] polyethylene glycoL 3350 [MiraLAX] 17 gm PO DAILY 14 Days #14 packet 12/07/20 [Rx] Oxygen Therapy Mode: Room Air Forms: ED Department Discharge Referrals: PCP,Not In Area [Primary Care Provider] - (Follow up with an Orthopedic surgeon close to home for recommendations about the management of the left wrist fracture) - Discharge Summary/Plan Comment DC Time >30 min.: Yes Total # of Minutes for Discharge Time: 33 - General Info Date of Service: 12/07/20 Admission Dx/Problem (Free Text: Admission Diagnosis/Problem Admission Diagnosis/Problem Trauma of chest Subjective Update: Patient's pain is stable. has some left hand swelling due to the splint. has left clavicular pain but CT does not show any fracture. able to ambulate and tolerating diet Functional Status: Reports: Pain Controlled, Tolerating Diet, Ambulating, Urinating - Review of Systems General: Reports: No Symptoms HEENT: Reports: No Symptoms Pulmonary: Reports: Other (rib fracture pain on the right) Cardiovascular: Reports: No Symptoms Gastrointestinal: Reports: No Symptoms Genitourinary: Reports: No Symptoms Musculoskeletal: Reports: No Symptoms - Patient Data Vitals - Most Recent: Last Vital Signs Temp 98.2 F 12/07/20 08:39 Pulse 78 12/07/20 08:39 Resp 16 12/07/20 08:39 BP 143/88 H 12/07/20 08:39 Pulse Ox 93 L 12/07/20 08:39 Weight - Most Recent: 114.26 kg I&O - Last 24 hours: Intake & Output 12/06/20 12/07/20 12/07/20 22:59 06:59 14:59 Intake Total 2640 1700 480 Output Total 800 1250 Balance 1840 450 480 Med Orders - Current: Current Medications Acetaminophen (Acetaminophen 325 Mg Tab) 650 mg PO Q6H [facility] Last Admin: 12/07/20 07:10 Dose: 650 mg Documented by: Enoxaparin Sodium (Enoxaparin 40 Mg/0.4 Ml Syringe) 40 mg SUBCUT DAILY [facility] Last Admin: 12/07/20 08:25 Dose: 40 mg Documented by: Hydromorphone HCl (Hydromorphone 0.5 Mg/0.5 Ml Syringe) 0.5 mg IVPUSH Q1H PRN PRN Reason: Pain Oxycodone HCl (Oxycodone 5 Mg Tab) 5 mg PO Q4H PRN PRN Reason: Pain Oxycodone/Acetaminophen (Acetaminophen/Oxycodone 325-5 Mg Tab) 1 tab PO Q4H PRN PRN Reason: Pain (moderate 4-6) Last Admin: 12/07/20 07:10 Dose: 1 tab Documented by: Polyethylene Glycol (Polyethylene Glycol 3350 Powder 17 Gm Packet) 17 gm PO DAILY [facility] Last Admin: 12/07/20 08:27 Dose: 17 gm Documented by: Sodium Chloride (Sodium Chloride 0.9% 10 Ml Syringe) 10 ml FLUSH ASDIRECTED PRN PRN Reason: Keep Vein Open Last Admin: 12/05/20 19:41 Dose: 10 ml Documented by: Discontinued Medications Sodium Chloride (Normal Saline) 1,000 mls @ 1,000 mls/hr IV ONETIME ONE Stop: 12/05/20 20:07 Last Admin: 12/05/20 19:41 Dose: 1,000 mls/hr Documented by: Tranexamic Acid 1,000 mg/ (Sodium Chloride) 110 mls @ 400 mls/hr IV ONETIME MORIAH Sodium Chloride (Normal Saline) 1,000 mls @ 125 mls/hr IV ASDIRECTED MORIAH Last Admin: 12/06/20 07:47 Dose: 125 mls/hr Documented by: Iopamidol (Iopamidol 612 Mg/Ml 50 Ml Sdv) 50 ml IVPUSH ONETIME ONE Stop: 12/05/20 19:32 Last Admin: 12/05/20 19:37 Dose: 50 ml Documented by: Iopamidol (Iopamidol 612 Mg/Ml 100 Ml Bottle) 100 ml IVPUSH ONETIME ONE Stop: 12/05/20 19:32 Last Admin: 12/05/20 19:37 Dose: 100 ml Documented by: Morphine Sulfate (Morphine 2 Mg/Ml Syringe) 2 mg IVPUSH ONETIME ONE Stop: 12/05/20 19:09 Last Admin: 12/05/20 19:41 Dose: 2 mg Documented by: - Exam Quality Assessment: Reports: DVT Prophylaxis General: Reports: Alert, Oriented, Cooperative Neck: Reports: Other (right posterior chest wall tenderness) Lungs: Reports: Clear to Auscultation Cardiovascular: Reports: Regular Rate, Regular Rhythm Extremities: Other (left wrist swelling and tenderness. SPlint in place)
== END 2020-12-07 12:50 | disposition home or self-care (01) ==
LOC: JD.ED 19:00 → JD.MS 20:20
PROVIDERS: ADMIT Surgery; ATTEND Surgery
DX: S22.41XA Multiple fractures of ribs, right side, initial encounter for closed fracture (principal); S30.1XXA Contusion of abdominal wall, initial encounter; Z88.8 Allergy status to other drugs, medicaments and biological substances; Z87.891 Personal history of nicotine dependence; Z20.822 Contact with and (suspected) exposure to COVID-19; W55.12XA Struck by horse, initial encounter
CPT/HCPCS: 36415; 71260; 73090; 73110; 74177; 80053; 80306; 83690; 85007; 85027; 86850; 86900; 86901; 87635; 87804; A9270; J1650; J2270; J7030; Q9967; 96372; 96374; 99285; 99285-25; G0378; U0002